=== PATIENT | female | born 1960 | race Caucasian/White ===

== ENCOUNTER 2023-02-04 16:53 | Emergency (ER) | payer BC, SELFPAY ==
[2023-02-04 17:16] VITALS: BP 160/61; PULSE 69; RESP 16; TEMP 36.6; O2SAT 96
--- NOTE | 2023-02-04 17:16 | ED.EAR ---
HPI - Ear Problem General Chief complaint: Ear Stated complaint: Ear problems Time Seen by Provider: 02/04/23 17:20 Source: patient Mode of arrival: ambulatory Limitations: no limitations History of Present Illness HPI Narrative: Petrona is a 62-year-old female patient presenting to the clinic today with complaints of bilateral ear pain and decreased hearing times 1 week. She reports she went to her primary care doctor and they told her it was likely a virus that she had a cough and congestion at that time. States that those symptoms have somewhat resolved however she is still having the discomfort in the ears and difficulty hearing. She denies any fever or chills Related Data Home Medications Medication Instructions Recorded Confirmed albuterol sulfate 90 mcg/actuation inhalation 02/04/23 aerosol inhaler amlodipine 10 mg tablet mg 02/04/23 atorvastatin 10 mg tablet mg 02/04/23 benzonatate 200 mg capsule mg PO 02/04/23 carvedilol 3.125 mg tablet mg 02/04/23 hydrochlorothiazide 50 mg tablet mg 02/04/23 insulin aspart U-100 100 unit/mL 02/04/23 subcutaneous solution levothyroxine 125 mcg tablet mcg 02/04/23 losartan 100 mg tablet mg 02/04/23 Allergies Allergy/AdvReac Type Severity Reaction Status Date / Time No Known Allergies Allergy Verified 02/04/23 17:15 Review of Systems Review of Systems: Pertinent positives per HPI. Patient denies any fever, chills, rash, headache, visual changes, dizziness, cough, runny nose, sore throat, shortness of breath, chest pain, palpitations, nausea, vomiting, diarrhea, constipation, abdominal pain, or any urinary issues. PMFSH Comments At the time of my signature, I reviewed and agree with the nursing past medical, surgical, social, and family history. There is no relevant family history pertinent to the patient complaint. Exam Narrative: General: Well-developed, well nourished, in no apparent distress Head: Normocephalic, atraumatic Eyes: Pupils equally round and reactive to light bilaterally, EOM intact, sclera and conjunctive clear, no discharge, lids normal Ears: TMs intact, mild bulging, fluid noted behind both TMs, ear canals clear, no drainage, grossly hearing normal. Nose: Nares patent, clear discharge, no inflammation, no sinus tenderness. Mouth: Oropharynx without lesions or masses, good dentition, MMM. Neck: Supple, trachea midline, no enlargement of anterior or posterior cervical nodes, no thyroid masses or goiter palpable. Cardio: Regular rate and rhythm, s1 and s2 normal, no murmur appreciated. Resp: Clear to auscultation bilaterally anteriorly and posteriorly, no rhonchi, rales, wheezing or rubs Course Course Emergency Course: Portions of this record may have been created with voice recognition software. Level of Care: Express Care Visit Vital Signs Vital signs: Vital signs reviewed Medical Decision Making MDM Narrative Medical decision making narrative: At the time of visit patient is resting comfortably on the exam table. I suspect patient has bilateral acute serous otitis. Discussed use of Sudafed, Flonase, and an [id number] antihistamine. Patient is a type 1 diabetic so steroids are not an option for this patient. Supportive measures were discussed with the patient she voiced understanding discharge instructions and agrees to treatment plan. Differential Diagnosis Differential Diagnosis: Otitis media, otitis externa, eustachian tube dysfunction, serous otitis, cerumen impaction, upper respiratory infection Discharge Plan Discharge Clinical Impression: Acute serous otitis media Patient Disposition: Home, Self-Care Condition: Stable Instructions: Antibiotic Form, Fluid In The Ear (Serous Otitis Media) (ED) Additional Instructions: Take any prescribed medications only as directed, Tylenol/motrin as needed for pain May take [id number] antihistamine such as Claritin or Zyrtec daily May any
== END 2023-02-04 17:31 | disposition home or self-care (01) ==
PROVIDERS: Emergency Provider Nurse Practitioner Family
DX: H65.03 Acute serous otitis media, bilateral (principal); Z79.899 Other long term (current) drug therapy; Z79.4 Long term (current) use of insulin
CPT/HCPCS: 99211; G0463